=== PATIENT | female | born 1980 | race Caucasian/White ===

== ENCOUNTER → 2016-10-11 | Outpatient (CLI) | payer OTHER ==
[~2016-10-11] MED LIST: PAIN RELIEF500 M2 PO
== END | disposition home or self-care (01) ==
LOC: CBAR 12:44
DX: Z01.812 Encounter for preprocedural laboratory examination (principal); E66.01 Morbid (severe) obesity due to excess calories
CPT/HCPCS: 36415; 84443; 86677; G0463

== ENCOUNTER → 2016-10-26 | Outpatient (CLI) | payer OTHER ==
--- NOTE | ~2016-10-26 | EKG ---
PATIENT: KODI UGARTE UNIT #: [id number] Ventricular Rate: 71 BPM Atrial Rate: 71 BPM P-R Interval: 170 ms QRS Duration: 92 ms Q-T Interval: 396 ms QTC Calculation(Bezet): 430 ms P Dimock: 40 degrees Calculated R Dimock: 18 degrees Calculated T Dimock: 25 degrees Diagnosis Line: Normal sinus rhythm Diagnosis Line: Normal ECG Diagnosis Line: No previous ECGs available Diagnosis Line: Confirmed by FARZANA JONES MD ([id number]) on Diagnosis Line: 10/27/2016 2:53:56 PM INTERPRETING MD: ABBEY
--- NOTE | ~2016-10-26 | CR97 ---
[facility] A Service of [facility] RADIOLOGY TEXT RESULTS PATIENT: KODI UGARTE LOCATION: [facility] : [birth year] UNIT #: [id number] AGE: [address]: Chris Cook III, MD SEX: F ORDER DR: [id number] [place] [id number] [facility]. [place], [place] [address] [id number] O MR#: [id number] Acc #: [id number] NAME: KODI UGARTE : 1980 SEX: F STUDY DATE/TIME: 10/26/2016 8:34 UNIT: [facility] ROOM: STUDY DESCRIPTION: CR Esophagram Attending Physician: Chris Cook III, M.D. Referring Physician: Chris Cook III, M.D. Ordering Physician: Chris Cook III, M.D. Primary Care Physician: Barry Hearn M.D. MEDICAL IMAGING REPORT This report is preliminary unless electronic signature is present EXAM Single contrast barium esophagram INDICATION Preoperative examination prior to laparoscopic gastric band surgery. TECHNIQUE Patient was administered thin barium. Multiple fluoroscopic images were obtained. FINDINGS Initial production support consultant image was unremarkable. Patient's thoracic esophagus is of normal caliber with no evidence of stricture or mass lesion. Esophageal motility appeared within normal limits. No reflux was seen. No hiatal hernia was identified. Total fluoroscopy time was 0.4 minutes and a total of 15 fluoroscopic images were obtained. IMPRESSION Normal single contrast barium esophagram. Dictated by... Meghana Littlejohn M.D. THIS IS AN ELECTRONICALLY VERIFIED REPORT Meghana Littlejohn M.D. at 10/29/2016 3:55 PM AFF/deandre TD: 10/29/2016 08:17 JOB #: [id number] [facility] A Service of [facility] RADIOLOGY TEXT RESULTS PATIENT: KODI UGARTE LOCATION: [facility] : 81 UNIT #: [id number] AGE: [address]: Chris Cook III, MD SEX: F ORDER DR: MEDICAL IMAGING REPORT Page 1 of 1 COPY
--- NOTE | ~2016-10-26 | CR63 ---
[facility] A Service of [facility] RADIOLOGY TEXT RESULTS PATIENT: KODI UGARTE LOCATION: [facility] : 81 UNIT #: [id number] AGE: [address]: Chris Cook III, MD SEX: F ORDER DR: [id number] [facility] [address] [place], [place] [address] [id number] O MR#: [id number] Acc #: [id number] NAME: KODI UGARTE : 1980 SEX: F STUDY DATE/TIME: 10/26/2016 8:36 UNIT: [facility] ROOM: STUDY DESCRIPTION: CR Chest 2 View Attending Physician: Chris Cook III, M.D. Referring Physician: Chris Cook III, M.D. Ordering Physician: Chris Cook III, M.D. Primary Care Physician: Barry Hearn M.D. MEDICAL IMAGING REPORT This report is preliminary unless electronic signature is present EXA, Chest 10/26/2016. [facility] HISTORY 36-year-old woman preop clearance for laparoscopic adjustable gastric band placement and possible paraesophageal hernia repair. 15 year smoking history. COMPARISON: None. FINDINGS Two-view chest demonstrates normal cardiac size and configuration. Hilar structures and mediastinal contours are preserved. Bilateral lungs are expanded and clear. Large body habitus noted. IMPRESSION Negative chest Dictated by... Sylvester Esquivel M.D. THIS IS AN ELECTRONICALLY VERIFIED REPORT Sylvester Esquivel M.D. at 10/26/2016 1:11 PM DAVID/heidy TD: 10/26/2016 12:21 JOB #: [id number] MEDICAL IMAGING REPORT Page 1 of 1 COPY
[2016-10-26 09:40] LABS: HEMATOCRIT 41.7 % (35.0-45.0); HEMOGLOBIN 13.6 gm/dL (12.0-16.0); MEAN CELL VOLUME 90.9 FL (83-96); MEAN CORPUSCULAR HEMOGLOBIN 29.7 PG (28-34); MEAN CORPUSCULAR HGB CONC 32.6 g/dL (30-36); MEAN PLATELET VOLUME 8.3 FL (6.5-11.5); RED BLOOD COUNT 4.59 X10e (3.90-5.30); RED CELL DISTRIBUTION WIDTH 12.9 % (11.0-15.5)
[2016-10-26 10:28] LABS: ALBUMIN SERUM 3.7 g/dL (3.5-5.0); BILIRUBIN,TOTAL 0.6 mg/dL (0.2-2.0); BUN/CREATININE RATIO 22.85; CALCIUM SERUM 9.1 mg/dL (8.4-10.2); CREATININE SERUM 0.7 mg/dL (0.6-1.4); GLOM FILT RATE Estimated 112.3 mL/min (>60); POTASSIUM 4.5 mmol/L (3.5-5.1); PROTEIN TOTAL SERUM 6.7 g/dL (6.0-8.3)
== END | disposition home or self-care (01) ==
LOC: CAMB 08:22 → CRAD 09:00 → CAMB 09:30
PROVIDERS: Surgery
DX: Z01.818 Encounter for other preprocedural examination (principal); K44.9 Diaphragmatic hernia without obstruction or gangrene
CPT/HCPCS: 36415; 71020; 74220; 80053; 80061; 84443; 85027; 93005

== ENCOUNTER → 2016-11-07 | Day surgery (SDC) | payer OTHER ==
--- NOTE | ~2016-11-07 | CR7 ---
[facility] A Service of [facility] RADIOLOGY TEXT RESULTS PATIENT: KODI UGARTE LOCATION: [facility] : 81 UNIT #: [id number] AGE: [address]: Chris Cook III, MD SEX: F ORDER DR: [id number] [facility] [address] [place], [place] [address] [id number] O MR#: [id number] Acc #: [id number] NAME: KODI UGARTE : 1980 SEX: F STUDY DATE/TIME: 11/07/2016 1227 UNIT: [facility] ROOM: STUDY DESCRIPTION: CR Abdomen Single AP View Attending Physician: Chris Cook III, M.D. Ordering Physician: Chris Cook III, M.D. Primary Care Physician: Barry Hearn M.D. MEDICAL IMAGING REPORT This report is preliminary unless electronic signature is present EXAM Abdomen single view 11/07/2016 1227 hours HISTORY 36-year-old woman with morbid obesity, postop Lap-Band placement today. COMPARISON Preop esophagram 10/26/2016 FINDINGS See impression. IMPRESSION Patient is status post Lap-Band placement with band overlying the left T10 and T11 costovertebral junctions oriented at 60 degrees from vertical. Radiopaque tubing courses inferiorly to a port overlying the left iliac crest. There is mild distension of the stomach. The bowel gas pattern is otherwise unremarkable. Dictated by... Asia Richard M.D. THIS IS AN ELECTRONICALLY VERIFIED REPORT Asia Richard M.D. at 11/07/2016 4:57 PM Zachary TD: 11/07/2016 16:53 JOB #: [id number] MEDICAL IMAGING REPORT Page 1 of 1 COPY
--- NOTE | ~2016-11-07 | OR ---
Unit #: [id number] #: [id number] Patient: KODI UGARTE [id number] [facility] [address] [place], [place] [address] [id number] O MR#: [id number] NAME: KODI UGARTE ROOM: Date of Procedure: 11/07/2016 Admission Date: 11/07/2016 Surgeon: Chris Cook III, M.D. : 1980 Attending Physician: Chris Cook III, M.D. Primary Care Physician: Barry Hearn M.D. OPERATIVE REPORT PREOPERATIVE DIAGNOSIS Chronic morbid obesity. POSTOPERATIVE DIAGNOSIS Chronic morbid obesity. SECONDARY DIAGNOSIS Anterior paraesophageal hernia. PROCEDURES PERFORMED Laparoscopic adjustable gastric banding (AP standard with regular port) and laparoscopic paraesophageal hernia repair. SHRIMP PEELING MACHINE TENDER Dr. Neto Briggs. SPECIMENS None. COMPLICATIONS None apparent. ESTIMATED BLOOD LOSS Minimal. ANESTHESIA General endotracheal tube anesthesia. INDICATIONS FOR PROCEDURE This is a 36-year-old lady, who has chronic morbid obesity with a BMI of 46. She has been through the bariatric program at [facility] and understands risks and benefits of the procedure. DESCRIPTION OF PROCEDURE After consent was obtained, including the risks and benefits of slippage, erosion, port dysfunction, and possible failure of weight loss due to noncompliance, the patient was taken to the operating room and placed in the supine position. General anesthetic was administered and the abdomen was prepped and draped in standard surgical fashion. I began by making a 2 cm incision just above and to the left of the umbilicus. I used a Visiport to enter the peritoneal cavity without any Unit #: [id number] #: [id number] Patient: KODI UGARTE difficulty. C02 pneumoperitoneum was then established. Next, I placed a 5 mm port in the right upper quadrant, a 5 mm Nato liver retractor in the subxiphoid region to provide exposure of the gastroesophageal junction. Next, a 10 mm port was placed in the left upper quadrant and a 5 mm port was placed in the left lateral subcostal region. I began by performing an examination of the GE junction to evaluate for a hiatal hernia. We then scored the peritoneal attachments overlying the angle of His. I then opened up the clear space in the gastrohepatic ligament, and then using 2 blunt graspers, I identified the small fat pad crossing over the right crura. I swept the fat anterior to the crura off the crura and using the pars flaccida, I created a retrogastric tunnel where the blunt grasper exited at the angle of His. Once I had made this tunnel safely, I then inserted an Allergan AP band into the abdominal cavity. This adjustable gastric band was then place around the upper part of the stomach and fastened and buckled anteriorly. We then tacked the lateral fundus over the band to the proximal pouch with 2 interrupted 0 Ethibond sutures. I then used a third stitch to imbricate the excess anterior stomach by going from the lesser curvature up towards where the last stitch was placed. We then had excellent hemostasis. I removed the Nato liver retractor. We then removed the port tubing through the initial port incision. The rest of the ports were removed, and the pneumoperitoneum was released. I then left a small tail on the tubing. We then attached the port to the excess band tubing. We placed a piece of Prolene mesh along the back side of the port and used a Prolene stitch to anchor this mesh in place. We then trimmed the excess mesh so that just a small footprint of mesh was in place behind the port. I then inserted the tubing back into the abdominal cavity, and we placed the port into a small pocket that was made just inferior to where our initial port incision was made. The mesh was in direct contact with the fascia, and this will scar in place to hold the port in place. We then injected all the port sites with 0.25% plain Marcaine, and I reapproximated the skin edges with interrupted 4-0 Vicryl subcuticular sutures. Steri-strips were then applied. The patient tolerated the procedure without any problems and returned to the recovery room in stable condition. ADDENDUM After exposure of the GE junction, the patient was noted to have a small- to medium-sized anterior paraesophageal hernia. I scored the phrenoesophageal ligament, reduced the hernia defect and after identifying both the right and left crura and reduced the hernia sac completely, I reapproximated the crura with interrupted 0 Ethibond [id number] suture. I then proceeded with the case as listed above. Dictated by... Vinckaren Cook III, M.D. VCL/beau TD: 11/08/2016 07:31 JOB #: [id number] Unit #: [id number] #: [id number] Patient: KODI UGARTE OPERATIVE REPORT Page 1 of 1 X Chris Cook III, MD X PROCEDURE OPERATIVE NOTE
== END | disposition home or self-care (01) ==
LOC: CSUR 07:56
DX: E66.01 Morbid (severe) obesity due to excess calories (principal); K44.9 Diaphragmatic hernia without obstruction or gangrene; F17.210 Nicotine dependence, cigarettes, uncomplicated; Z72.4 Inappropriate diet and eating habits; Z68.42 Body mass index [BMI] 45.0-49.9, adult; Z79.891 Long term (current) use of opiate analgesic; Z98.890 Other specified postprocedural states
CPT/HCPCS: 74000; 84703; C1781; J0330; J0690; J1650; J1885; J2250; J2405; J3010; L8699